=== PATIENT | female | born 1980 | race Asian ===

== ENCOUNTER 2022-09-19 13:21 | Emergency (ER) | payer OTHER ==
[~2022-09-19] VITALS: Ht 157.5 cm; Wt 66.2 kg
[2022-09-19] MEDS ORDERED: BUSP5TAB PO (13:39)
[2022-09-19] MEDS ORDERED: LATU20TA PO (13:39)
[2022-09-19] MEDS ORDERED: OFLOXACIN 0.3 % (OCUFLOX) OPTH SOL 5ML XX ONE (17:05)
[2022-09-19] MEDS ORDERED: OFLOSO OTIC (17:12)
[2022-09-19 17:43] VITALS: BP 112/62
== END 2022-09-19 18:01 | disposition home or self-care (01) ==
LOC: M ED 13:21
DX: H60.91 Unspecified otitis externa, right ear (principal); H66.011 Acute suppurative otitis media with spontaneous rupture of ear drum, right ear; F41.9 Anxiety disorder, unspecified; F32.9 Major depressive disorder, single episode, unspecified